=== PATIENT | male | born 1960 | race Caucasian/White ===

== ENCOUNTER 2023-08-09 10:15 | Emergency (ER) | payer BC, SELFPAY ==
[2023-08-09 10:30] VITALS: BP 120/77; PULSE 100; RESP 18; TEMP 36.4; O2SAT 99
--- NOTE | 2023-08-09 10:48 | ED.GENADULT ---
HPI - General Adult General Chief complaint: Upper Respiratory Infection Stated complaint: Sinus Source: patient Mode of arrival: ambulatory Limitations: no limitations History of Present Illness HPI narrative: Patient presents for evaluation of sick symptoms for the past three days. He reports sinus congestion, productive cough, chills and generalized body aches. No fever, vomiting, diarrhea, shortness of breath. His currently has similar symptoms and is being treated for strep throat. He has taken sudafed for his symptoms. He is a former smoker. Related Data Home Medications Medication Instructions Recorded Confirmed Unknown Statin 08/09/23 aspirin 81 mg chewable tablet 81 mg PO DAILY 08/09/23 08/09/23 [id number] oil-omega 3-vit E cap PO 08/09/23 50 mg-550 mg-300 mg-30 unit capsule losartan 08/09/23 metoprolol tartrate 08/09/23 pantoprazole 08/09/23 Allergies Allergy/AdvReac Type Severity Reaction Status Date / Time No Known Allergies Allergy Verified 08/09/23 10:28 Review of Systems Review of Systems: CONSTITUTIONAL: Reports chills. Denies fever or sweats. EYES: Denies visual changes, redness, or discharge. ENT: Reports sinus congestion. Denies rhinorrhea, sore throat, or otalgia. CARDIOVASCULAR: Denies chest pain, palpitations, or edema. RESPIRATORY: Reports cough. Denies SOB GASTROINTESTINAL: Denies abdominal pain, nausea, vomiting, or diarrhea. GENITOURINARY: Denies dysuria or hematuria. SKIN: Denies rash or itching. MUSCULOSKELETAL: Denies back pain, joint pain, or myalgia. NEUROLOGIC: Denies headache, numbness, dizziness, or weakness. PSYCHIATRIC: Denies anxiety or depression. [facility] Past Medical History Medical History (Updated 08/09/23 @ 11:03 by Francesco Everett, MIKE, ) History of hypertension Hyperlipidemia Myocardial infarction Family History Family History Mother Family history non-contributory Social History Social History Smoking status: Former smoker Substance use: never Living arrangements: with family Gender identity (if verbalized by the patient): Male Sexual Orientation (if Verbalized by the Patient): Straight or Heterosexual Spiritual care concerns: No Exam Narrative: GENERAL: Well-appearing, well-nourished, and in no acute distress. HEAD: Normocephalic, atraumatic. EYES: PERRLA and EOMI. ENT: Nares clear, no rhinorrhea or epistaxis. Mucous membranes moist. Oropharynx without tonsillar hypertrophy exudate or other lesions. Bilateral tympanostomy tubes in place. There is thick drainage noted through the tympanostomy tubes. NECK: Supple. No adenopathy or masses. No carotid bruits or JVD CHEST: Cough present on exam. Clear to auscultation. No respiratory distress. No wheezes rales or rhonchi HEART: Regular rate and rhythm. No murmur heard. Normal peripheral pulses. ABDOMEN: Soft, nontender, nondistended, normal active bowel sounds. EXTREMITIES: Normal range of motion. No edema. SKIN: Warm, dry, no rash. NEURO: No focal deficits. Alert and oriented x3. PSYCH: Normal mood and affect. Course Course Emergency Course: This is a 62-year-old male who presented for evaluation of sick symptoms. COVID, influenza, strep were negative. Through shared decision making opted to proceed with augmentin given strep exposure. He has abx ear gtts at home that he will continue. Increase hydration. Vtnz-oli-oiyfbit agents for symptom management. Follow up with primary provider. Go to the ER for worsening symptoms. Patient in agreement with plan of care. Level of Care: Express Care Visit Vital Signs Vital signs: Vital Signs Temperature 36.4 C L 08/09/23 10:30 Pulse Rate 100 08/09/23 10:30 Respiratory Rate 18 08/09/23 10:30 Blood Pressure 120/77 08/09/23 10:30 Pulse Oximetry 99 08/09/23 10:30
== END 2023-08-09 11:09 | disposition home or self-care (01) ==
PROVIDERS: Emergency Provider Nurse Practitioner
DX: J34.89 Other specified disorders of nose and nasal sinuses (principal); R05.9 Cough, unspecified; R52 Pain, unspecified; Z20.818 Contact with and (suspected) exposure to other bacterial communicable diseases; I10 Essential (primary) hypertension; E78.5 Hyperlipidemia, unspecified; I25.2 Old myocardial infarction; Z87.891 Personal history of nicotine dependence; Z79.82 Long term (current) use of aspirin
CPT/HCPCS: 87081; 87426; 87804; 87880; 99203; C9803; G0463